=== PATIENT | female | born 1945 | race American Indian/Alaskan Native ===

== ENCOUNTER 2016-11-26 07:39 | Observation (INO) | payer MEDICARE, OTHER ==
[2016-11-26 07:57] VITALS: BMI 39.4
--- NOTE | 2016-11-26 08:13 | ED PDOC ---
Arrival/HPI - General Chief Complaint: Allergic Reaction Time Seen by Provider: 11/26/16 08:09 Historian: Patient - History of Present Illness Narrative History of Present Illness (Text): 11/26/16 15:19 71-year-old female presents the emergency department with one-day duration generalized facial and upper and lower lip swelling. Patient denies any shortness of breath, denies any wheezing. Patient states this has not happened before. Patient denies taking any DILAN inhibitor or ARB use for her blood pressure. Patient states that she has no familial history of similar events. States that she has not taking any medicines this episode. Patient states that she received Benadryl via EMS. Symptom Course: Unchanged Activities at Onset: Rest Context: Work Past Medical History - Provider Review Nursing Documentation Reviewed: Yes - Infectious Disease Hx of Infectious Diseases: None - Tetanus Immunization Tetanus Immunization: Up to Date - Cardiac Hx Cardiac Disorders: Yes Hx Hypertension: Yes - Pulmonary Hx Respiratory Disorders: No - Neurological Hx Neurological Disorder: No - HEENT Hx HEENT Disorder: No - Renal Hx Renal Disorder: No - Endocrine/Metabolic Hx Diabetes Mellitus Type 2: Yes - Hematological/Oncological Hx Blood Disorders: No - Integumentary Hx Dermatological Disorder: No - Musculoskeletal/Rheumatological Hx Musculoskeletal Disorders: No - Gastrointestinal Hx Gastrointestinal Disorders: No - Genitourinary/Gynecological Hx Genitourinary Disorders: No - Psychiatric Hx Depression: No Hx Emotional Abuse: No Hx Physical Abuse: No Hx Substance Use: No - Past Surgical History Past Surgical History: Non-Contributing - Surgical History Hx Appendectomy: Yes Hx Hysterectomy: Yes Hx Tubal Ligation: Yes - Anesthesia Hx Anesthesia: Yes Hx Anesthesia Reactions: No Hx Malignant Hyperthermia: No - Suicidal Assessment Feels Threatened In Home Enviroment: No Family/Social History - Physician Review Nursing Documentation Reviewed: Yes Family/Social History: No Known Family HX Smoking Status: Unknown If Ever Smoked Hx Alcohol Use: No Hx Substance Use: No Hx Substance Use Treatment: No Allergies/Home Meds Allergies/Adverse Reactions: Allergies Penicillins Allergy (Verified 11/26/16 07:56) RASH Sulfa (Sulfonamide Antibiotics) Allergy (Verified 11/26/16 07:56) RASH peanuts Allergy (Uncoded 11/26/16 07:56) ANGIOEDEMA Home Medications: Home Meds Medication Instructions Recorded Confirmed Allopurinol 100 mg PO DAILY 10/25/12 05/17/15 Aspirin [Aspir 81] 81 mg PO DAILY 10/25/12 05/17/15 Atenolol 50 mg PO DAILY 10/25/12 05/17/15 Metformin Hydrochloride [Metformin] 500 mg PO BID 10/25/12 05/17/15 Simvastatin 20 mg PO DAILY 10/25/12 05/17/15 Amlodipine Besylate/Benazepr 1 cap PO DAILY 03/24/15 05/17/15 [Lotrel 10 mg-20 mg] Furosemide [Lasix] 40 mg PO DAILY 03/24/15 05/17/15 Review of Systems - Physician Review All systems were reviewed & negative as marked: Yes Physical Exam - Physical Exam Narrative Physical Exam (Text): - Review of Systems Constitutional: Normal. absent: Fatigue, Weight Change, Fevers Eyes: Normal ENT: denies sore throat, denies tristhmus Respiratory: Normal. absent: SOB, Cough, Sputum Cardiovascular: absent: Chest Pain, Palpitations, Syncope Gastrointestinal: Normal. absent: Abdominal Pain, Diarrhea, Nausea, Vomiting Genitourinary: Normal. absent: Dysuria, Frequency, Hematuria, vaginal bleeding Musculoskeletal: Normal. absent: Arthralgias, Back Pain, Neck Pain Skin: Facial and lip swelling. no rashes, no erythema Neurological: absent: Focal Weakness Endocrine: Normal Hemo/Lymphatic: Normal Psychiatric: No suicidal or homicidal ideations Physical exam Patient appears age appropriate in no distress, speaking full sentences without difficulty No wheezing, no respiratory distress, patient speaking full sentences without difficulty. - Systems Exam Head: Present: Atraumatic, Normocephalic Pupils: Present: PERRL Extroacular Muscles: Present: EOMI Conjunctiva: Present: Normal Mouth: Present: Moist Mucous Membranes. Upper and lower angioedema. Normal- appearing tongue. Face swollen as well. Neck: Present: Normal Range of Motion. No: MIDLINE TENDERNESS, Paraspinal Tenderness Respiratory/Chest: Present: Clear to Auscultation, Good Air Exchange. No: Respiratory Distress, Accessory Muscle Use, Tachypneic Cardiovascular: Present: Regular Rate and Rhythm, Normal S1, S2, Peripheal Pulses Present. No: Murmurs Abdomen: Present: Normal Bowel Sounds. No: Tenderness, Distention, Peritoneal Signs, Rebound, Guarding Back: Present: Normal Inspection. No: Midline Tenderness, Paraspinal Tenderness Upper Extremity: Present: Normal Inspection. No: Cyanosis, Edema Lower Extremity: Present: Normal Inspection. No: Edema Neurological: Present: GCS=15, Speech Normal, cranial nerves II through XII fully intact with no cerebellar abnormality, neurosensory fully intact. No focal neurological deficits. Skin: Present: Warm, Dry, Normal Color. No: Rashes Lymphatic: Present: OX3, NI, NC Psychiatric: Present: Alert, Oriented x 3, Normal Insight, Normal Concentration Vital Signs Reviewed: Yes Vital Signs Temp Pulse Resp BP Pulse Ox 11/26/16 13:51 74 20 133/69 95 11/26/16 12:43 94 H 21 140/77 97 11/26/16 12:05 70 18 128/83 96 11/26/16 09:38 75 18 131/69 98 11/26/16 07:52 98.5 F 70 19 129/83 99 Temperature: Afebrile Blood Pressure: Normal Pulse: Regular Respiratory Rate: Normal Appearance: Positive for: Well-Appearing, Non-Toxic, Comfortable Pain Distress: None Mental Status: Positive for: Alert and Oriented X 3 Medical Decision Making ED Course and Treatment: 11/26/16 08:13 Impression: 71-year-old female with facial swelling. On physical exam, patient is in no respiratory distress, speaking full sentences without difficulty, no wheezing. Differential Diagnosis include but are not limited to: Surgical reaction versus angioedema Plan: -- EKG -- chest xray -- Labs -- Decadron, Pepcid -- Reassess and disposition Prior Visits: Notes and results from previous visits were reviewed. Patient last seen in the ED on 05/17/15 for evaluation of dizziness. Patient's labs and EKG were unremarkable. Patient was discharged on Amoxicillin/Flonase and advised to continue her Meclizine. Progress Notes: Chest xray: Creator : Mina Arguello MD IMPRESSION: No active disease. 11/26/16 12:[address] Payan, accepted to his service for obs pt aware of and agrees with plan - Lab Interpretations Lab Results: 11/26/16 09:30 11/26/16 09:30 Lab Results 11/26/16 12:04: POC Glucose (mg/dL) 132 H 11/26/16 09:30: WBC 7.4, RBC 4.46, Hgb 12.1, Hct 35.5 L, MCV 79.6 L, MCH 27.1, MCHC 34.1, RDW 16.2 H, Plt Count 315, MPV 10.6, Gran % 57.5, Lymph % (Auto) 34.9 , Ector % (Auto) 4.9, Eos % (Auto) 2.4, Baso % (Auto) 0.3, Gran # 4.24, Lymph # 2.6, Ector # 0.4, Eos # 0.2, Baso # 0.02, Sodium 143, Potassium 4.0, Chloride 99 , Carbon Dioxide 28, Anion Gap 20, BUN 16, Creatinine 0.6, Est GFR ( Amer ) > 60, Est GFR (Non-Af Amer) > 60, Random Glucose 105, Calcium 9.4, Total Bilirubin 0.5, AST 32, ALT 24, Alkaline Phosphatase 78, Total Protein 8.9 H, Albumin 4.3, Globulin 4.6, Albumin/Globulin Ratio 0.9 L, Free T4 1.13, Thyroxine (T4) 8.9, TSH 3rd Generation 1.16 11/26/16 09:00: Triglycerides 128, Cholesterol 131, LDL Cholesterol Direct 64, HDL Cholesterol 35 I have reviewed the lab results: Yes - RAD Interpretation Radiology Orders: 11/26/16 08:35 CHEST PORTABLE [RAD] Stat - EKG Interpretation Interpreted by ED Physician: Yes Type: 12 lead EKG - Medication Orders Current Medication Orders: Albuterol/Ipratropium (Duoneb 3 Mg/0.5 Mg (3 Ml) Ud) 3 ml IH [id number] [facility] Stop: 12/03/16 20:01 Last Admin: 11/26/16 13:45 Dose: 3 ML Amlodipine Besylate (Norvasc) 10 mg PO DAILY [facility] Last Admin: 11/26/16 13:42 Dose: Aspirin (Ecotrin) 81 mg PO DAILY [facility] Last Admin: 11/26/16 13:46 Dose: 81 MG Atorvastatin Calcium (Lipitor) 10 mg PO DAILY [facility] Last Admin: 11/26/16 13:41 Dose: Dexamethasone (Decadron Inj) 4 mg IVP Q6H [facility] Last Admin: 11/26/16 13:46 Dose: 4 MG IVP Administration Document 11/26/16 13:46 [facility] (Rec: 11/26/16 13:46 [id number] Charges for Administration # of IVP Administrations 1 Famotidine (Pepcid) 20 mg PO BID [facility] Furosemide (Lasix) 40 mg PO DAILY [facility] Last Admin: 11/26/16 13:43 Dose: Insulin Human Lispro (Humalog High) 0 units SC ACHS [facility] Lisinopril (Zestril) 20 mg PO DAILY [facility] Last Admin: 11/26/16 13:42 Dose: Loratadine (Claritin) 10 mg PO DAILY [facility] Last Admin: 11/26/16 13:46 Dose: 10 MG Metformin HCl (Glucophage) 500 mg PO BID [facility] Pantoprazole Sodium (Protonix Ec Tab) 40 mg PO 0730,1630 [facility] Discontinued Medications Dexamethasone (Decadron Inj) 10 mg IM STAT ST[facility] Stop: 11/26/16 08:21 Last Admin: 11/26/16 09:33 Dose: 10 MG IM Administration Charges Document 11/26/16 09:33 [facility] (Rec: 11/26/16 09:33 [facility] [id number]) Injection Site MAR Injection Site Left Deltoid Charges for Administration # of IM Administrations 1 Famotidine (Pepcid) 40 mg PO STAT [facility] Stop: 11/26/16 08:21 Last Admin: 11/26/16 09:33 Dose: 40 MG - Beauibe Statement The provider has reviewed the documentation as recorded by the Lillian Gregg All medical record entries made by the Lillian were at my direction and personally dictated by me. I have reviewed the chart and agree that the record accurately reflects my personal performance of the history, physical exam, medical decision making, and the department course for this patient. I have also personally directed, reviewed, and agree with the discharge instructions and disposition. Disposition/Present on Arrival - Present on Arrival Any Indicators Present on Arrival: No History of DVT/PE: No History of Uncontrolled Diabetes: No Urinary Catheter: No History of Decub. Ulcer: No History Surgical Site Infection Following: None - Disposition Have Diagnosis and Disposition been Completed?: Yes Diagnosis: Angioedema Disposition: HOSPITALIZED Disposition Time: 12:05 Patient Plan: Observation Patient Problems: Current Active Problems Problem Status Diagnosed Angioedema Acute Condition: FAIR
--- NOTE | 2016-11-26 08:56 | RAD ---
HISTORY: cough COMPARISON: No prior. FINDINGS: LUNGS: No active pulmonary disease. PLEURA: No significant pleural effusion identified, no pneumothorax apparent. CARDIOVASCULAR: Normal. OSSEOUS STRUCTURES: No significant abnormalities. VISUALIZED UPPER ABDOMEN: Normal. OTHER FINDINGS: None. IMPRESSION: No active disease.
[2016-11-26 09:42] LABS: ADD MANUAL DIFF? NO
[2016-11-26 09:46] LABS: BASO # 0.02 K/mm3 (0.0-2.0); BASO % 0.3 % (0.0-3.0); EOS # 0.2 (0.0-0.7); EOS % 2.4 % (1.5-5.0); GRAN # 4.24 (1.4-6.5); GRAN % 57.5 % (50.0-68.0); HEMATOCRIT 35.5 % (36.0-48.0); LYMPH # 2.6 (1.2-3.4); LYMPH % 34.9 % (22.0-35.0); MEAN CELL VOLUME 79.6 fL (80.0-105.0); MEAN CORPUSCULAR HEMOGLOBIN 27.1 pg (25.0-35.0); MEAN CORPUSCULAR HGB CONC 34.1 g/dl (31.0-37.0); MEAN PLATELET VOLUME 10.6 fl (7.0-11.0); MONO # 0.4 (0.1-0.6); MONO % 4.9 % (1.0-6.0); PLATELET COUNT 315 10^3/uL (120.0-450.0); RED CELL DISTRIBUTION WIDTH 16.2 % (11.5-14.5); WHITE BLOOD COUNT 7.4 10^3/ul (4.5-11.0)
[2016-11-26 09:54] LABS: ALB/GLOB RATIO 0.9 (1.1-1.8); ALKALINE PHOSPHATASE 78 U/L (38-133); ALT/SGPT 24 U/L (7-56); AST/SGOT 32 U/L (15-39); BILIRUBIN,TOTAL 0.5 mg/dL (0.2-1.3); BLOOD UREA NITROGEN 16 mg/dL (7-21); CALCIUM 9.4 mg/dL (8.4-10.5); CARBON DIOXIDE 28 mmol/L (21-33); CHLORIDE 99 mmol/L (95-110); GFR AFRICAN-AMERICAN > 60; GLUCOSE,RANDOM 105 mg/dL (70-110); SODIUM 143 mmol/L (132-148); TOTAL PROTEIN 8.9 g/dL (5.8-8.3)
--- NOTE | 2016-11-26 12:32 | CARD ---
APPROVED REPORT EKG Measurement Heart [id number] <Conclusion> Sinus bradycardia Minimal voltage criteria for LVH, may be normal variant Borderline ECG
[2016-11-26] MEDS ORDERED: ATENOLOL 50 MG PO SCH (13:15)
[2016-11-26] MEDS ORDERED: Non Formulary Medication (Amlodipine Besylate/Benazepr [Lotrel 10 Mg-20 Mg] 1 CAP) PO SCH (13:15)
[2016-11-26 13:40] LABS: CHOLESTEROL 131 mg/dL (130-200)
[2016-11-26] MEDS: Albuterol-Ipratrop 3 mg / 0.5 (3 ml) UD IH SCH ×2 (13:45→20:11)
[2016-11-26] MEDS: Dexamethasone 4 mg/1 ml IVP SCH ×3 (13:46→18:16)
[2016-11-26 13:51] VITALS: O2SAT 95
[2016-11-26 14:04] LABS: FREE T4 1.13 ng/dL (0.78-2.19); T4 8.9 ug/dL (5.5-11.0)
[2016-11-26 14:17] LABS: THYROID STIMULATING HORMONE 1.16 mIU/mL (0.46-4.68)
[2016-11-26] MEDS ORDERED: Insulin Lispro (HUMAlog) HIGH Coverage SC SCH (16:30)
[2016-11-26] MEDS ORDERED: Pneumococcal 23-Valent Vaccine IM ONE (17:20)
[2016-11-26] MEDS: Insulin Lispro (HUMAlog) HIGH Coverage SC SCH ×2 (17:24→21:57)
[2016-11-26] MEDS: Pantoprazole 40 mg EC Tab PO SCH (17:25)
--- NOTE | 2016-11-26 21:42 | HP ---
HISTORY OF PRESENT ILLNESS: The patient is a 71-year-old obese female who presented to the Emergency Room via the [facility]. The patient reported that she ate [place] food last night and woke up at 2:00 this morning with swelling of the face and lips. The patient reported above symptoms to the triage nurse. According to the ER physician, the patient developed generalized facial and upper and lower lip swelling. Denies shortness of breath, denies wheezing. The patient ate [place] food last night and the patient took Benadryl via the EMS without any response. REVIEW OF SYSTEMS: A 13-system review was done. Pertinent positives and negative dictated above. CODE STATUS: Full code. LIVING WILL AND ADVANCED DIRECTIVE: None. HEIGHT: 5 feet 4 inches. WEIGHT: 230 pounds. BMI: 39.5. ALLERGIES: PENICILLIN, SULFA, PEANUTS. HOME MEDICATIONS: Simvastatin 20 mg, omeprazole 20 mg twice a day, metformin 500 mg twice a day, Lasix 40 mg daily, Flonase daily, Tenormin 50 mg daily, Lotrel 10/20 daily, Zyloprim 100 mg daily. The patient's last mammogram 2014. SOCIAL HISTORY: Denies smoking. Denies alcohol. Denies drug use. Denies communicable transmissible disease. PAST MEDICAL AND SURGICAL HISTORY: History of hypertension, history of obesity , history of type 2 non-insulin requiring diabetes mellitus, history of hypertension, history of hyperuricemia, history of appendectomy, history of hysterectomy, tubal ligation. Past medical history is significant for gastroesophageal reflux, history of morbid obesity, history of dyslipidemia, history of proteinuria, history of microscopic hematuria, history of urinary tract infection in 2012. The patient's past medical history is also significant for a negative CT of the head in 05/2015, history of BI-RADS 2 mammogram in 2014, history of hypertensive cardiovascular disease, history of hypertension, history of osteopenia, osteoporosis. Past medical history is also significant for a history of dyslipidemia, hypertension, type 2 diabetes, history of gastroesophageal reflux, appendectomy, history of chronic back pain, history of hysterectomy, tubal ligation, history of herniorrhaphy, history of asthma. PHYSICAL EXAMINATION: GENERAL: The patient is seen on stretcher #6 in the Emergency Room. VITAL SIGNS: T-max 98.5, heart rate 75, 70, 94, 74, blood pressure ranging from 129/83-140/77, respirations 20, O2 sat 95% to100%. HEAD: Normocephalic, atraumatic. HEENT: Shows positive bilateral facial puffiness, positive lip swelling. The patient does not have any tongue swelling. [place] conjunctivae, anicteric sclerae. No facial asymmetry. NECK: No neck rigidity, no jugular venous distension. CHEST: Kyphosis. LUNGS: Shows no rales, crackles, or wheezing. CARDIOVASCULAR: S1, S2, regular rhythm. I was unable to appreciate any murmur , gallop or rub at this time. ABDOMEN: Obese, positive bowel sounds, healed surgical scar of hysterectomy, tubal ligation and appendectomy. VASCULAR: Showed palpable pulses. MUSCULOSKELETAL: Shows a body mass index of 39 with a body weight of 230, height of 5 feet 4. NEUROLOGIC: Cranial nerves II-XII intact. GAIT: Not tested. PSYCHIATRIC: Negative for anxiety or depression. Negative for suicidal or homicidal ideation. DIAGNOSTICS: CBC: WBC 7.4, hemoglobin and hematocrit 12.1 and 35.5, and platelets 315. Sodium 143, potassium 4.0, chloride 99, CO2 of 28, anion gap 20 , BUN 16, creatinine 0.6, GFR greater than 60, glucose 132. Hemoglobin A1c was 6.1. LFTs are normal. Cholesterol 131, LDL 64, HDL 35. Thyroid panel is within normal limits. Chest x-ray was done in the Emergency Room, which was negative for any active disease. EKG done in the Emergency Room shows sinus rhythm, sinus bradycardia with possible left axis deviation. The patient was evaluated in the Emergency Room by ER physician Dr. Ramon. The patient was treated with IV Decadron 10 mg and Pepcid. The patient was advised to be admitted. IMPRESSION AND PLAN: 1. Acute symptomatic angioedema, probably secondary to seafood OR [place] FOOD. 2. Hypertension. 3. Morbid obesity. 4. Well controlled type 2 diabetes mellitus with hemoglobin A1c of 6.1. 5. History of dyslipidemia. 6. History of gastroesophageal reflux. 7. History of type 2 diabetes mellitus. 8. History of hypertension. 9. History or hyperuricemia. 10. FOOD ALLERGY PLAN: At this time, the patient is to be admitted to telemetry observation. The patient has been ordered Claritin 10 mg daily, Decadron 4 mg IV q.6, DuoNeb nebulizer every 6 hours, Ecotrin 81 mg daily, Humalog high dose sliding scale coverage. The patient is to be resumed on Lasix 40 daily, Lipitor 10 mg daily. The patient's Lotrel has to be changed to Norvasc 10 mg and Zestril 20 mg daily, Pepcid 20 mg twice a day. The patient is started on DVT prophylaxis, and GI prophylaxis. The patient is to be resumed on oral hypoglycemic. The patient has been ordered out of bed. At present, the patient's further management will be dependent upon the patient's clinical condition, hemodynamic status, and as per the patient's response to therapeutic intervention, as per the patient's diagnostic test results and as per recommendation by the physician involved in the care of the patient. The patient was explained about the details of her medical condition, need for hospitalization and need for treatment. The patient's diagnoses, treatment plan , and further diagnostic and therapeutic intervention was discussed and explained to the patient at length and all questions and concerns answered. The patient was seen in the Emergency Room in bed 6. At this time, we will await the patient's disposition to the floor. The patient will be continued on above therapeutic intervention. Dictated and electronically signed, not read. Shade Payan MD cc: [id number] TT: 11/26/2016 21:41:05 meli JORDAN
[2016-11-26] MEDS: Nystatin-Triamcinolone Cream(30 gm) TOP SCH (21:55)
[2016-11-26] MEDS: Enoxaparin 40 mg Syringe SC SCH (21:57)
[2016-11-27 00:32] VITALS: RESP 20
[2016-11-27] MEDS: Albuterol-Ipratrop 3 mg / 0.5 (3 ml) UD IH SCH ×3 (01:17→13:03)
[2016-11-27] MEDS: Dexamethasone 4 mg/1 ml IVP SCH ×3 (02:08→12:14)
[2016-11-27 07:25] LABS: ADD MANUAL DIFF? NO
[2016-11-27 07:30] LABS: GRAN # 7.02 (1.4-6.5); GRAN % 80.8 % (50.0-68.0); HEMATOCRIT 35.3 % (36.0-48.0); LYMPH # 1.5 (1.2-3.4); LYMPH % 17.7 % (22.0-35.0); MEAN CELL VOLUME 78.3 fL (80.0-105.0); MEAN CORPUSCULAR HEMOGLOBIN 26.8 pg (25.0-35.0); MEAN CORPUSCULAR HGB CONC 34.3 g/dl (31.0-37.0); MEAN PLATELET VOLUME 11.4 fl (7.0-11.0); MONO # 0.1 (0.1-0.6); MONO % 1.5 % (1.0-6.0); PLATELET COUNT 333 10^3/uL (120.0-450.0); RED CELL DISTRIBUTION WIDTH 16.4 % (11.5-14.5); WHITE BLOOD COUNT 8.7 10^3/ul (4.5-11.0)
[2016-11-27 07:38] LABS: INR 1.02 (0.93-1.08); PARTIAL THROMBOPLASTIN TIME 25.2 Seconds (23.7-30.8)
[2016-11-27 08:12] LABS: ALB/GLOB RATIO 0.9 (1.1-1.8); ALKALINE PHOSPHATASE 82 U/L (38-133); ALT/SGPT 24 U/L (7-56); AST/SGOT 30 U/L (15-39); BILIRUBIN,DIRECT 0.6 mg/dL (0.0-0.4); BILIRUBIN,TOTAL 0.7 mg/dL (0.2-1.3); BLOOD UREA NITROGEN 17 mg/dL (7-21); CALCIUM 10.1 mg/dL (8.4-10.5); CARBON DIOXIDE 25 mmol/L (21-33); CHLORIDE 100 mmol/L (98-107); GFR AFRICAN-AMERICAN > 60; GLUCOSE,RANDOM 162 mg/dL (70-110); MAGNESIUM 1.7 mg/dL (1.7-2.2); POTASSIUM 4.1 mmol/L (3.6-5.0); SODIUM 142 mmol/L (132-148); TOTAL PROTEIN 9.5 g/dL (5.8-8.3)
[2016-11-27 08:22] LABS: FREE T4 1.2 ng/dL (0.78-2.19); T4 10.2 ug/dL (5.5-11.0)
[2016-11-27 08:35] LABS: THYROID STIMULATING HORMONE 0.24 mIU/mL (0.46-4.68)
[2016-11-27] MEDS: Insulin Lispro (HUMAlog) HIGH Coverage SC SCH ×2 (08:50→12:13)
[2016-11-27] MEDS: Pantoprazole 40 mg EC Tab PO SCH (08:50)
[2016-11-27] MEDS: Enoxaparin 40 mg Syringe SC SCH (11:09)
[2016-11-27] MEDS: Nystatin-Triamcinolone Cream(30 gm) TOP SCH ×2 (11:10→15:10)
[2016-11-27 13:06] VITALS: BP 112/50; PULSE 99; TEMP 98.7
--- NOTE | 2016-11-27 13:32 | DS ---
The patient is seen in room 265, bed 2. The patient seen in room 265, bed 2. The patient is sitting up in the bed. The patient's facial swelling and lip swelling has significantly decreased. The patient overnight nurse's notes were reviewed. The patient was given some Claritin and Benadryl for itchiness overnight. PHYSICAL EXAMINATION: VITAL SIGNS: T-max 98.9. Telemetry shows sinus rhythm, heart rate in 70s and low 90s. Blood pressure 111/64, 133/65, 133/69. Respirations 20. O2 sat is 95 % to 97% to 98%. HEAD: Normocephalic, atraumatic. HEENT: Shows pinkish conjunctivae, anicteric sclerae, no oropharyngeal lesion. NECK: No neck rigidity. CHEST: Kyphosis. LUNGS: Shows no wheezing, no rales, no crackles, no rhonchi. CARDIOVASCULAR: S1, S2, regular rhythm. No audible murmur, gallop or rub. FACE: Facial swelling and lip swelling has significantly improved. There is no macroglossia noted. NECK: No neck rigidity. ABDOMEN: Soft, obese, positive bowel sounds. GENITALIA: Female. RECTAL: Deferred. EXTREMITIES: Shows no pitting edema, no calf tenderness, no Homans sign. MUSCULOSKELETAL: Shows an elevated body mass index of 41.2. GAIT: Independent. NEUROLOGICAL: Cranial nerves II-XII intact. VASCULAR: Palpable pulses. PSYCHIATRIC: Negative for anxiety, depression. Negative for auditory, visual hallucination. Negative for suicidal or homicidal ideation. DIAGNOSTICS: 11/27, WBC 8.7, hemoglobin and hematocrit 12.1 and 35.3, platelets 333. Sodium 142, potassium 4.1, chloride 100, CO2 of 25, anion gap 21, BUN 17. Creatinine 0.6. GFR greater than 60. Glucose 186, 162, 198, 221, 132. LFTs are normal. Calcium 10.1, magnesium 1.7. Vitamin D is 22.3. TSH 1.16. Hemoglobin A1c 6.1. FINAL IMPRESSION, PLAN, AND DISCHARGE DIAGNOSES: 1. Acute symptomatic angioedema with facial and lip swelling (resolved versus resolving secondary to [place] food). 2. Hypertension. 3. Morbid obesity. 4. Type 2 non-insulin requiring diabetes mellitus with hemoglobin A1c of 6.2. 5. Hypovitaminosis D. 6. History of dyslipidemia, history of gastroesophageal reflux, history of hypertension, history of hyperuricemia, history of type 2 diabetes mellitus. 7. Morbid obesity with elevated body mass index of greater than 41. 8. Bradycardia. 9. Hypovitaminosis D. 9. History of PENICILLIN, SULFA, AND PEANUT ALLERGY. 10. Sinus bradycardia. 11. Hypertensive cardiovascular disease with left ventricular hypertrophy. 12. Questionable left axis deviation. 13. History of diabetes mellitus. 14. History of hypertension, dyslipidemia. 1. Acute symptomatic angioedema, probably secondary to seafood OR [place] FOOD. 2. Hypertension. 3. Morbid obesity. 4. Well controlled type 2 diabetes mellitus with hemoglobin A1c of 6.1. 5. History of dyslipidemia. 6. History of gastroesophageal reflux. 7. History of type 2 diabetes mellitus. 8. History of hypertension. 9. History or hyperuricemia. 10. FOOD ALLERGY PLAN: At this time, patient has been cleared for discharge since patient has significant improvement of the symptoms. The patient has been discharged home. DISCHARGE FOLLOWUP: With PMD within 1 week. Discharge medications as per the updated ambulatory orders and new script. The patient was advised to release all records from this hospitalization to PMD. The patient was advised to release all records from this hospitalization to PMD. The patient was advised no alcohol, no smoking, no driving. The patient was advised to resume all home meds plus the new prescription. DISCHARGE MEDICATIONS: The patient is to resume her allopurinol 100 mg daily. The patient is to resume her Lotrel 10/20 daily, aspirin 81 daily. The patient has to discuss ____ Tenormin or atenolol 50 mg daily with the primary regarding bradycardia. The patient is on vitamin D3 at 2,000 units daily; Pepcid 20 mg twice a day, Flonase nasal spray daily, Lasix 40 mg daily, Vistaril 25 mg q.8 p.r.n., Claritin 10 mg daily, metformin 500 mg twice a day, Medrol Dosepak. The patient is also given Protonix 40 mg daily. The patient is to resume her simvastatin 20 mg at bedtime. During this hospitalization, the patient was extensively explained about the current diagnosis, treatment plan, management plan all discussed and explained to the patient at length and all questions and concerns answered in layman's language and all questions and concerns answered to the patient's satisfaction. Time spent in the entire discharge process more than 45 minutes. Dictated and electronically signed, not read. Shade Payan MD cc: [id number] TT: 11/27/2016 13:31:22 sn JORDAN
== END 2016-11-27 17:00 | disposition home or self-care (01) ==
LOC: ED 07:39 → ERH 12:15 → 2RNO 14:46
PROVIDERS: ADMIT Internal Medicine; ATTEND Internal Medicine
DX: T78.3XXA Angioneurotic edema, initial encounter (principal); T78.1XXA Other adverse food reactions, not elsewhere classified, initial encounter; E11.9 Type 2 diabetes mellitus without complications; K21.9 Gastro-esophageal reflux disease without esophagitis; E66.01 Morbid (severe) obesity due to excess calories; E78.5 Hyperlipidemia, unspecified; E55.9 Vitamin D deficiency, unspecified; I11.9 Hypertensive heart disease without heart failure; J45.909 Unspecified asthma, uncomplicated; M81.0 Age-related osteoporosis without current pathological fracture; Z68.41 Body mass index [BMI] 40.0-44.9, adult; Z90.49 Acquired absence of other specified parts of digestive tract; Z90.710 Acquired absence of both cervix and uterus; Z87.440 Personal history of urinary (tract) infections; Z79.84 Long term (current) use of oral hypoglycemic drugs; Z91.010 Allergy to peanuts; Z88.2 Allergy status to sulfonamides; Z88.0 Allergy status to penicillin
CPT/HCPCS: 36415; 71010; 80053; 80061; 82248; 82306; 82948; 82985; 83036; 83735; 84439; 84443; 85025; 85610; 85730; 93005; 94640; 94760; 96372; 96374; 99284; G0378; J1100; J1650; Q0177

== ENCOUNTER 2017-08-13 08:17 | Emergency (ER) | payer MEDICARE, OTHER ==
[2017-08-13 08:32] VITALS: BMI 45.1
[2017-08-13] MEDS ORDERED: Albuterol-Ipratrop 3 mg / 0.5 (3 ml) UD IH STA (08:42)
[2017-08-13] MEDS ORDERED: guaiFENesin-Codeine 100-10mg/5ml Syrup (5 ml) UD PO STA (08:43)
--- NOTE | 2017-08-13 08:57 | ED PDOC ---
Arrival/HPI - General Time Seen by Provider: 08/13/17 08:25 Historian: Patient - History of Present Illness Narrative History of Present Illness (Text): 08/13/17 08:45 A 71 year old female, whose past medical history includes hypertension, diabetes type 2, hysterectomy, appendectomy, and tubal ligation, presents to the emergency department complaining of cough with shortness of breath when coughing only for 3 days. Patient reports she experiences pain in throat when coughing. Patient denies any fever, leg swelling, or any other complaints. PMD: Dr. Dawkins Time/Duration: < week (3 days) Symptom Onset: Sudden Symptom Course: Unchanged Past Medical History - Provider Review Nursing Documentation Reviewed: Yes - Infectious Disease Hx of Infectious Diseases: None - Tetanus Immunization Tetanus Immunization: Up to Date - Reproductive Menopause: Yes - Cardiac Hx Cardiac Disorders: Yes Hx Hypertension: Yes - Pulmonary Hx Asthma: Yes Hx Bronchitis: Yes - Neurological Other/Comment: pinched nerve lower back - HEENT Hx HEENT Disorder: Yes (eyeglasses) - Renal Hx Renal Disorder: No - Endocrine/Metabolic Hx Diabetes Mellitus Type 2: Yes - Hematological/Oncological Hx Blood Disorders: No - Integumentary Hx Dermatological Disorder: No - Musculoskeletal/Rheumatological Hx Arthritis: Yes - Gastrointestinal Hx Gastroesophageal Reflux: Yes - Genitourinary/Gynecological Hx Genitourinary Disorders: No - Psychiatric Hx Substance Use: No - Past Surgical History Past Surgical History: Non-Contributing - Surgical History Hx Appendectomy: Yes Hx Hysterectomy: Yes Other/Comment: tubal, hernia sx as a teenager - Anesthesia Hx Anesthesia: Yes Hx Anesthesia Reactions: No Hx Malignant Hyperthermia: No - Suicidal Assessment Feels Threatened In Home Enviroment: No Family/Social History - Physician Review Nursing Documentation Reviewed: Yes Family/Social History: No Known Family HX Smoking Status: Never Smoked Hx Alcohol Use: No Hx Substance Use: No Hx Substance Use Treatment: No Allergies/Home Meds Allergies/Adverse Reactions: Allergies Penicillins Allergy (Verified 11/26/16 07:56) RASH Sulfa (Sulfonamide Antibiotics) Allergy (Verified 11/26/16 07:56) RASH peanuts Allergy (Uncoded 11/26/16 07:56) ANGIOEDEMA Home Medications: Home Meds Medication Instructions Recorded Confirmed Allopurinol [Zyloprim] 100 mg PO DAILY 11/26/16 11/26/16 Amlodipine Besylate/Benazepril 1 cap PO DAILY 11/26/16 11/26/16 [Lotrel 10-20 mg Capsule] Atenolol 50 mg PO DAILY 11/26/16 11/26/16 Metformin HCl [Glucophage] 500 mg PO BID 11/26/16 11/26/16 Simvastatin 20 mg PO HS 11/26/16 11/26/16 Review of Systems - Physician Review All systems were reviewed & negative as marked: Yes - Review of Systems Constitutional: absent: Fevers Respiratory: SOB, Cough (with phelgm) Musculoskeletal: absent: Other (no leg swelling) Physical Exam Vital Signs Reviewed: Yes Vital Signs Temp Pulse Resp BP Pulse Ox 08/13/17 09:45 98 F 82 19 121/86 98 08/13/17 08:17 98.4 F 76 20 142/84 99 Temperature: Afebrile Blood Pressure: Normal Pulse: Regular Respiratory Rate: Normal Appearance: Positive for: Well-Appearing Pain Distress: None Mental Status: Positive for: Alert and Oriented X 3 Finger Stick Blood Glucose: 136 - Systems Exam Head: Present: Atraumatic, Normocephalic Pupils: Present: PERRL Extroacular Muscles: Present: EOMI Conjunctiva: Present: Normal Mouth: Present: Moist Mucous Membranes Neck: Present: Normal Range of Motion Respiratory/Chest: Present: Clear to Auscultation, Good Air Exchange. No: Respiratory Distress, Accessory Muscle Use Cardiovascular: Present: Regular Rate and Rhythm, Normal S1, S2. No: Murmurs Abdomen: Present: Normal Bowel Sounds. No: Tenderness, Distention, Peritoneal Signs Back: Present: Normal Inspection Upper Extremity: Present: Normal Inspection. No: Cyanosis, Edema Lower Extremity: Present: Normal Inspection. No: Edema Neurological: Present: GCS=15, CN II-XII Intact, Speech Normal Skin: Present: Warm, Dry, Normal Color. No: Rashes Psychiatric: Present: Alert, Oriented x 3, Normal Insight, Normal Concentration Medical Decision Making ED Course and Treatment: 08/13/17 08:50 Impression: 71 year old female with cough and shortness of breath. Differential Diagnosis included but are not limited to: Bronchitis vs. Pneumonia Plan: -- Chest X-ray -- Duoneb -- Robitussin w/ Codeine -- Reassess and disposition Prior Visits: Notes and results from previous visits were reviewed. Patient was last seen in the emergency department on 11/26/2016 for duration generalized facial and upper and lower lip swelling. Patient was admitted. Progress Notes: 08/13/2017 09:43 Chest X-ray IMPRESSION: Mild peribronchial thickening. No evidence of pneumonia. Dictator: Mina Bill MD Patient improved with medications. She has cough medicine at home. Denies any shortness of breathe and was able to walk in the ED without SOB. CXR reviewed with Dr. Bill and no PNA but some mild preribronchial thickening. Patient will be given Levaquin. She was advised to make sure she follows up with her PMD in 1-2 days and to return to the ED if symptoms worsen or any other concern. - Lab Interpretations Lab Results: Lab Results 08/13/17 08:35: POC Glucose (mg/dL) 136 H - RAD Interpretation Radiology Orders: 08/13/17 08:42 CHEST TWO VIEWS (PA/LAT) [RAD] Stat - Medication Orders Current Medication Orders: Discontinued Medications Albuterol/Ipratropium (Duoneb 3 Mg/0.5 Mg (3 Ml) Ud) 3 ml IH STAT STA Stop: 08/13/17 08:43 Last Admin: 08/13/17 08:47 Dose: 3 ml Guaifenesin/Codeine Phosphate (Robitussin W/Codeine) 5 ml PO STAT STA Stop: 08/13/17 08:44 Last Admin: 08/13/17 08:47 Dose: 5 ml Levofloxacin (Levaquin) 750 mg PO STAT STA Stop: 08/13/17 09:43 Last Admin: 08/13/17 10:01 Dose: 750 mg - Scribe Statement The provider has reviewed the documentation as recorded by the Lillian Munoz Provider Scribe Attestation: All medical record entries made by the Lillian were at my direction and personally dictated by me. I have reviewed the chart and agree that the record accurately reflects my personal performance of the history, physical exam, medical decision making, and the department course for this patient. I have also personally directed, reviewed, and agree with the discharge instructions and disposition. Disposition/Present on Arrival - Present on Arrival Any Indicators Present on Arrival: No History of DVT/PE: No History of Uncontrolled Diabetes: No Urinary Catheter: No History of Decub. Ulcer: No History Surgical Site Infection Following: None - Disposition Have Diagnosis and Disposition been Completed?: Yes Diagnosis: Bronchitis, Upper respiratory infection Disposition: HOME/ ROUTINE Disposition Time: 10:12 Patient Plan: Discharge Condition: IMPROVED Discharge Instructions (ExitCare): Acute Bronchitis (ED) Additional Instructions: Ms Parry, thank you for letting us take care of you today. Your provider was Dr. Leo. You were treated for Bronchitis. The emergency medical care you received today was directed at your acute symptoms. If you were prescribed any medication, please fill it and take as directed. It may take several days for your symptoms to resolve. Return to the Emergency Department if your symptoms worsen, do not improve, or if you have any other problems. Please contact your doctor or call one of the physicians/clinics you have been referred to that are listed on the Patient Visit Information form that is included in your discharge packet. Bring any paperwork you were given at discharge with you along with any medications you are taking to your follow up visit. Our treatment cannot replace ongoing medical care by a primary care provider (PCP) outside of the emergency department. Thank you for allowing the [facility] team to be part of your care today. If you had an X-Ray or CT scan: A Radiologist will review the ED reading if any change in treatment is needed we will contact you. If you had a blood, urine, or wound culture: It will take several days for the results, if any change in treatment is needed we will contact you. If you had an STI test: It will take 48 hours for the results. Please call after 1 week if you have not heard back. Prescriptions: Albuterol HFA [Ventolin HFA 90 mcg/actuation (8 g)] 2 puff IH Q4 #1 puff Levofloxacin [Levaquin] 750 mg PO DAILY #6 tablet Referrals: Jovany Dawkins MD [Primary Care Provider] - Follow up with primary Forms: [employer] App ([employer])
[2017-08-13] MEDS ORDERED: levoFLOXacin 750 MG TAB PO STA ×2 (09:40→09:42)
--- NOTE | 2017-08-13 09:45 | RAD ---
HISTORY: cough r/o pna COMPARISON: 11/26/2016 TECHNIQUE: Chest PA and lateral FINDINGS: LUNGS: There is mild peribronchial thickening right greater than left with fullness of the keyon. There is no pneumonia. PLEURA: Minimal fluid is seen in the minor fissure on the right CARDIOVASCULAR: Normal. OSSEOUS STRUCTURES: No significant abnormalities. VISUALIZED UPPER ABDOMEN: Normal. OTHER FINDINGS: None. IMPRESSION: Mild peribronchial thickening. No evidence of pneumonia
[2017-08-13 10:07] VITALS: BP 121/86; PULSE 82; RESP 19; TEMP 98; O2SAT 98
== END 2017-08-13 09:28 | disposition home or self-care (01) ==
LOC: ED 08:17
DX: J40 Bronchitis, not specified as acute or chronic (principal); J06.9 Acute upper respiratory infection, unspecified; E11.9 Type 2 diabetes mellitus without complications; I10 Essential (primary) hypertension; Z88.0 Allergy status to penicillin; Z88.2 Allergy status to sulfonamides